=== PATIENT | male | born 1965 | race African-American/Black ===

== ENCOUNTER 2016-10-21 11:34 | Emergency (ER) | payer BC ==
[~2016-10-21 11:34] MED LIST: FLEXERIL PO; NORCO 5/325 TAB1 TAB PO; TRAMADOL HCL50 M1 PO
[2016-10-21] MEDS ORDERED: NO MEDICATIONS (11:36)
== END 2016-10-21 11:54 | disposition home or self-care (01) ==
LOC: SED 11:34
DX: I10 Essential (primary) hypertension (principal); F17.210 Nicotine dependence, cigarettes, uncomplicated
CPT/HCPCS: 99282